=== PATIENT | female | born 1970 | race Caucasian/White ===

== ENCOUNTER 2021-03-05 07:48 | Day surgery (SDC) | payer OTHER, MEDICAID ==
[~2021-03-05] VITALS: Ht 165.1 cm; Wt 104.2 kg
[2021-03-05 08:25] VITALS: BP 119/69; PULSE 92
[2021-03-05] MEDS ORDERED: LINZESS290CAP PO (08:25)
[2021-03-05] MEDS ORDERED: PROBIOTIC FORMU1 CAP PO (08:26)
[2021-03-05] MEDS ORDERED: PROTONIX 40MG T40 MG PO (08:27)
[2021-03-05] MEDS ORDERED: VALTREX1 GM PO (08:28)
[2021-03-05] MEDS ORDERED: MOTRIN 800800 MG/TAB PO (08:29)
[2021-03-05 08:41] VITALS: BP 102/75; PULSE 80; TEMP 99
--- NOTE | 2021-03-05 09:25 | NUR ---
Pt to [facility] via cart from ENDO. Pt awake and alert. Pt ambulates to recliner with stand by assistance. Warm blanket provided. Pt given water per request. Pt denies pain or nausea. Will continue to monitor. Call light within reach.
[2021-03-05 09:40] VITALS: BP 114/63; PULSE 77
--- NOTE | 2021-03-05 09:40 | NUR ---
Pt continues to rest. Denies needs. Call light within reach.
[2021-03-05 09:55] VITALS: BP 112/75; PULSE 77
--- NOTE | 2021-03-05 09:55 | NUR ---
Pt resting. Tolerating water without diffiuclties. Call light within reach.
[2021-03-05 10:10] VITALS: BP 114/75; PULSE 72
--- NOTE | 2021-03-05 10:10 | NUR ---
Discharge instructions reviewed. Pt voices understanding. IV site disontinued with all parts intact. Pt up to dress. Ride is not available at this time. Pt will stay in [place] [facility] till ride arrives. Pt denies needs at this time. Call light within reach.
--- NOTE | 2021-03-05 11:20 | NUR ---
Pt's daughter is here. Pt escorted to private car via wheel chair. Pt accompanied home by her daughter.
== END 2021-03-05 11:20 | disposition home or self-care (01) ==
LOC: SDCO 07:48
DX: K22.2 Esophageal obstruction (principal); K21.00 Gastro-esophageal reflux disease with esophagitis, without bleeding; K90.0 Celiac disease; M79.7 Fibromyalgia; I34.1 Nonrheumatic mitral (valve) prolapse; D86.9 Sarcoidosis, unspecified; M51.37 Other intervertebral disc degeneration, lumbosacral region; G62.9 Polyneuropathy, unspecified; M19.90 Unspecified osteoarthritis, unspecified site; G43.909 Migraine, unspecified, not intractable, without status migrainosus; F32.9 Major depressive disorder, single episode, unspecified; F41.9 Anxiety disorder, unspecified; F43.10 Post-traumatic stress disorder, unspecified; F42.9 Obsessive-compulsive disorder, unspecified; Z20.822 Contact with and (suspected) exposure to COVID-19; Z88.5 Allergy status to narcotic agent; Z88.8 Allergy status to other drugs, medicaments and biological substances; Z88.1 Allergy status to other antibiotic agents; Z79.899 Other long term (current) drug therapy; Z80.1 Family history of malignant neoplasm of trachea, bronchus and lung
CPT/HCPCS: C1726; J2704; J7030

== ENCOUNTER 2022-01-18 16:40 | Day surgery (SDC) | payer OTHER, MEDICAID ==
[~2022-01-18] VITALS: Ht 165.1 cm; Wt 100.5 kg
[~2022-01-18 16:40] MED LIST: LINZESS290CAP PO; MOTRIN 800800 MG/TAB PO; PROBIOTIC FORMU1 CAP PO; PROTONIX 40MG T40 MG PO; VALTREX1 GM PO
[2022-01-18] MEDS ORDERED: FLEXERIL 1010 MG/TAB PO (16:57)
[2022-01-18] MEDS ORDERED: NAPROSYN500 MG PO (16:57)
[2022-01-18] MEDS ORDERED: LYSINE1000 MG PO (17:00)
[2022-01-18 17:14] VITALS: BP 109/73; PULSE 99; TEMP 98.3
[2022-01-18 17:57] VITALS: BP 108/65; PULSE 88; TEMP 97.7
[2022-01-18 18:12] VITALS: BP 114/66; PULSE 77
[2022-01-18 18:27] VITALS: BP 104/61; PULSE 76; TEMP 97.7
--- NOTE | 2022-01-18 19:00 | NUR ---
175 PT RETURNED TO BAY 2 VIA CART. ALERT AND ORIENTED. MONITORS ATTACHED, INTERVALS AND ALARMS SET. PT DENIES PAIN OR NAUSEA. SPRITE AND JELLO PROVIDED. 181 PT TOLERATING FOOD AND DRINK WELL. VSS. RIDE CALLED, NO ANSWER. 182 PT DENIES PAIN OR NAUSEA. REVIEWED DISCHARGE INSTRUCTIONS AND EDUCATION PACKET, ANSWERED ALL QUESTION TO PT SATISFACTION. PT ALLOWED TO DRESS. 184 PT UP TO BATHROOM, ABLE TO VOID WITHOUT DIFFICULTY. D/C IV WITHOUT COMPLICATIONS 190 PT TRANSFERED VIA WHEELCHAIR TO PERSONAL VEHICLE TO BE DRIVEN HOME BY FRIEND.
== END 2022-01-18 19:00 | disposition home or self-care (01) ==
LOC: SDCO 16:40
DX: K22.2 Esophageal obstruction (principal); K29.30 Chronic superficial gastritis without bleeding; K25.4 Chronic or unspecified gastric ulcer with hemorrhage; K29.80 Duodenitis without bleeding; K26.9 Duodenal ulcer, unspecified as acute or chronic, without hemorrhage or perforation; F17.210 Nicotine dependence, cigarettes, uncomplicated; Z86.16 Personal history of COVID-19
CPT/HCPCS: C1726; J2405; J2704; J2765; J7120